=== PATIENT | female | born 1980 | race Caucasian/White ===

== ENCOUNTER 2024-01-23 16:01 | Emergency (ER) | payer OTHER, SELFPAY ==
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
[2024-01-23 16:24] VITALS: BP 151/106; PULSE 75; RESP 16; TEMP 37.3; O2SAT 99
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
== END 2024-01-23 18:30 | disposition home or self-care (01) ==
PROVIDERS: Emergency Provider Nurse Practitioner
DX: S16.1XXA Strain of muscle, fascia and tendon at neck level, initial encounter (principal); V49.40XA Driver injured in collision with unspecified motor vehicles in traffic accident, initial encounter; S20.212A Contusion of left front wall of thorax, initial encounter; S70.02XA Contusion of left hip, initial encounter
CPT/HCPCS: 71046; 73502; 99214; G0463

== ENCOUNTER 2024-04-21 08:37 | Emergency (ER) | payer OTHER, SELFPAY ==
[2024-04-21 08:46] VITALS: BP 165/95; PULSE 59; RESP 20; TEMP 36.7; O2SAT 98
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
== END 2024-04-21 09:40 | disposition home or self-care (01) ==
PROVIDERS: Emergency Provider Nurse Practitioner
DX: S39.012A Strain of muscle, fascia and tendon of lower back, initial encounter (principal); W01.0XXA Fall on same level from slipping, tripping and stumbling without subsequent striking against object, initial encounter; M54.32 Sciatica, left side
CPT/HCPCS: 99213; G0463